=== PATIENT | female | born 1995 | race Caucasian/White ===

== ENCOUNTER 2018-05-22 19:55 | Emergency (ER) | payer MEDICAID ==
[~2018-05-22] VITALS: Ht 167.6 cm; Wt 90.7 kg
[2018-05-22 21:05] LABS: Hematocrit 42.1 % (36.0-46.0); Hemoglobin 14.1 g/dL (12.2-16.2); Mean Corpuscular Hgb Conc. 33.6 g/dL (32.0-36.0); Mean Corpuscular Volume 92.5 fL (80.0-100.0); Platelet Count (auto) 244 10^3/uL (140-450); Red Blood Cells 4.55 10^6/uL (4.0-5.20); Red Cell Distribution Width 13.3 % (11.8-14.3); White Blood Cell 12.9 10^3/uL (4.4-10.8)
[2018-05-22 21:12] LABS: Band Neutrophils % (manual) 0; Basophils % (manual) 0 (0.0-2.0); Blast Cells 0; Metamyelocytes % 0; Myelocytes % 0; Promyelocytes % 0; Reactive Lymphocytes 0
[2018-05-22 21:26] LABS: Albumin 3.9 g/dL (3.4-5.0); Bilirubin, Total 1.2 mg/dL (0.2-1.0); Calcium 9.2 mg/dL (8.5-10.1); Magnesium 2.6 mg/dL (1.6-2.6); Potassium 4.4 mmol/L (3.5-5.1)
[2018-05-22 21:49] LABS: Eosinophils % (manual) 16 (0-7); Lymphocytes % (manual) 25 (10.0-50.0); Monocytes % (manual) 5 (0-12)
[2018-05-23 00:57] VITALS: BP 111/71
== END 2018-05-23 02:49 | disposition home or self-care (01) ==
LOC: ER 19:55
DX: K59.00 Constipation, unspecified (principal)
CPT/HCPCS: 36415; 74176; 80053; 83690; 83735; 84702; 85007; 85027